=== PATIENT | female | born 1995 | race Caucasian/White ===

== ENCOUNTER 2019-10-05 12:47 | Emergency (ER) | payer OTHER ==
[~2019-10-05] VITALS: Ht 172.7 cm; Wt 90.7 kg
== END 2019-10-05 14:33 | disposition home or self-care (01) ==
LOC: ER 12:47
DX: J03.90 Acute tonsillitis, unspecified (principal)

== ENCOUNTER 2020-01-06 20:29 | Emergency (ER) | payer OTHER ==
[~2020-01-06] VITALS: Ht 172.7 cm; Wt 89.8 kg
[2020-01-07] MEDS ORDERED: ORPHENADRINE C100 MG PO (00:44)
[2020-01-07] MEDS ORDERED: KETO10TA2 PO (00:44)
== END 2020-01-07 00:50 | disposition home or self-care (01) ==
LOC: ER 20:29
DX: S20.212A Contusion of left front wall of thorax, initial encounter (principal); S20.211A Contusion of right front wall of thorax, initial encounter; S40.012A Contusion of left shoulder, initial encounter; M54.2 Cervicalgia; M62.838 Other muscle spasm; V49.88XA Car occupant (driver) (passenger) injured in other specified transport accidents, initial encounter; Y93.89 Activity, other specified; Y92.413 State road as the place of occurrence of the external cause; Y99.8 Other external cause status